=== PATIENT | female | born 2000 | race Caucasian/White ===

== ENCOUNTER 2020-02-05 19:35 | Emergency (ER) | payer SELFPAY ==
--- NOTE | 2020-02-05 20:28 | EDM.PDOC ---
ED HPI GENERAL MEDICAL PROBLEM - General Chief Complaint: MANAGER PULMONARY Problem Stated Complaint: COMPLICATIONS Time Seen by Provider: 02/05/20 19:51 Source of Information: Reports: Patient History Limitations: Reports: No Limitations - History of Present Illness INITIAL COMMENTS - FREE TEXT/NARRATIVE: 19-year-old female GA 12 weeks by LMP of 11/17/2019, presents with pelvic cramps and vaginal spotting at 5 PM today. She denies fever, chills, myalgia, dysuria. She admits to a sore throat, generalized malaise, nausea, vomiting, dry cough, headaches. ROS: A 10-point review of systems, other than pertinent positives and negatives as stated per HPI, is otherwise negative Past medical history: No additional pertinent history Past Surgical history: No additional pertinent history Social history: No additional pertinent history Family history: No additional pertinent history PHYSICAL EXAM General: AOx4, GCS = 15, No distress HEENT: dry mucous membrane Neck: supple, no meningismus, no Kernig or Brudzinski Cardiac: S1S2 RRR Respiratory: CTAB, no crackles or rales, no wheezing Abdomen: Soft, suprapubic tenderness, no rebound or guarding, nondistended, no pulsatile mass. Back: nontender Musculoskeletal: NVI distally, no deformity Neuro: No focal deficits, CN 2 - 12 WNL. 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: Musculoskeletal History: Reports: None Neurological History: Reports: None Psychiatric History: Reports: None Endocrine/Metabolic History: Reports: None Dermatologic History: Reports: None - Infectious Disease History Infectious Disease History: Reports: None Social & Family History - Tobacco Use Tobacco Use Status *Q: Never Tobacco User - Recreational Drug Use Recreational Drug Use: No ED ROS GENERAL - Review of Systems Review Of Systems: See Below (see dictation) ED EXAM, GENERAL - Physical Exam Exam: See Below (see dictation) Course - Vital Signs Last Recorded V/S: Last Vital Signs Temp 98.9 F 02/05/20 19:44 Pulse 85 02/05/20 23:23 Resp 14 02/05/20 23:23 BP 110/50 L 02/05/20 23:23 Pulse Ox 98 02/05/20 23:23 - Orders/Labs/Meds Orders: Active Orders 24 hr Category Date Time Status CORONAVIRUS COVID-19 PCR PHL Stat Lab 02/05/20 23:29 Ordered CULTURE URINE [RM] Stat Lab 02/05/20 21:50 Received Labs: Laboratory Tests 02/05/20 02/05/20 02/05/20 Range/Units 21:50 22:10 22:10 WBC 6.82 (4.0-11.0) K/uL RBC 4.36 (4.30-5.90) M/uL Hgb 13.7 (12.0-16.0) g/dL Hct 40.5 (36.0-46.0) % MCV 92.9 (80.0-98.0) fL MCH 31.4 (27.0-32.0) pg MCHC 33.8 (31.0-37.0) g/dL RDW Std Deviation 41.1 (28.0-62.0) fl RDW Coeff of Saroj 12 (11.0-15.0) % Plt Count 193 (150-400) K/uL MPV 10.60 (7.40-12.00) fL Neut % (Auto) 67.0 (48.0-80.0) % Lymph % (Auto) 17.3 (16.0-40.0) % [place] % (Auto) 14.7 (0.0-15.0) % Eos % (Auto) 0.7 (0.0-7.0) % Baso % (Auto) 0.3 (0.0-1.5) % Neut # (Auto) 4.6 (1.4-5.7) K/uL Lymph # (Auto) 1.2 (0.6-2.4) K/uL [place] # (Auto) 1.0 H (0.0-0.8) K/uL Eos # (Auto) 0.1 (0.0-0.7) K/uL Baso # (Auto) 0.0 (0.0-0.1) K/uL Nucleated RBC % 0.0 /100WBC Nucleated RBCs # 0 K/uL Sodium (136-145) mmol/L Potassium (3.5-5.1) mmol/L Chloride (98-107) mmol/L Carbon Dioxide (21.0-32.0) mmol/L BUN (7.0-18.0) mg/dL Creatinine (0.6-1.0) mg/dL Est Cr Clr Drug Dosing mL/min Estimated GFR (MDRD) ml/min Glucose (74-106) mg/dL Calcium (8.5-10.1) mg/dL Total Bilirubin (0.2-1.0) mg/dL AST (15-37) IU/L ALT (14-63) IU/L Alkaline Phosphatase (46-116) U/L Total Protein (6.4-8.2) g/dL Albumin (3.4-5.0) g/dL Globulin (2.6-4.0) g/dL Albumin/Globulin Ratio (0.9-1.6) HCG, Quant 452877.0 mIU/mL Urine Color YELLOW Urine Appearance SLT CLOUDY Urine pH 5.5 (5.0-8.0) Ur Specific [place] >= 1.030 (1.001-1.035) Urine Protein NEGATIVE (NEGATIVE) mg/dL Urine Glucose (UA) NEGATIVE (NEGATIVE) mg/dL Urine Ketones NEGATIVE (NEGATIVE) mg/dL Urine Occult Blood NEGATIVE (NEGATIVE) Urine Nitrite NEGATIVE (NEGATIVE) Urine Bilirubin NEGATIVE (NEGATIVE) Urine Urobilinogen 0.2 (<2.0) EU/dL Ur Leukocyte Esterase TRACE H (NEGATIVE) Urine RBC 0-2 (0-2/HPF) Urine WBC 3-6 (0-5/HPF) Ur Epithelial Cells MODERATE (NONE-FEW) Urine Bacteria FEW (NEGATIVE) Urine Mucus MODERATE (NONE-MOD) Blood Type 02/05/20 02/05/20 Range/Units 22:10 22:10 WBC (4.0-11.0) K/uL RBC (4.30-5.90) M/uL Hgb (12.0-16.0) g/dL Hct (36.0-46.0) % MCV (80.0-98.0) fL MCH (27.0-32.0) pg MCHC (31.0-37.0) g/dL RDW Std Deviation (28.0-62.0) fl RDW Coeff of Saroj (11.0-15.0) % Plt Count (150-400) K/uL MPV (7.40-12.00) fL Neut % (Auto) (48.0-80.0) % Lymph % (Auto) (16.0-40.0) % [place] % (Auto) (0.0-15.0) % Eos % (Auto) (0.0-7.0) % Baso % (Auto) (0.0-1.5) % Neut # (Auto) (1.4-5.7) K/uL Lymph # (Auto) (0.6-2.4) K/uL [place] # (Auto) (0.0-0.8) K/uL Eos # (Auto) (0.0-0.7) K/uL Baso # (Auto) (0.0-0.1) K/uL Nucleated RBC % /100WBC Nucleated RBCs # K/uL Sodium 138 (136-145) mmol/L Potassium 3.8 (3.5-5.1) mmol/L Chloride 104 (98-107) mmol/L Carbon Dioxide 26.0 (21.0-32.0) mmol/L BUN 6 L (7.0-18.0) mg/dL Creatinine 0.6 (0.6-1.0) mg/dL Est Cr Clr Drug Dosing 130.23 mL/min Estimated GFR (MDRD) > 60.0 ml/min Glucose 97 (74-106) mg/dL Calcium 8.9 (8.5-10.1) mg/dL Total Bilirubin 0.2 (0.2-1.0) mg/dL AST 12 L (15-37) IU/L ALT 20 (14-63) IU/L Alkaline Phosphatase 56 (46-116) U/L Total Protein 6.7 (6.4-8.2) g/dL Albumin 3.2 L (3.4-5.0) g/dL Globulin 3.5 (2.6-4.0) g/dL Albumin/Globulin Ratio 0.9 (0.9-1.6) HCG, Quant mIU/mL Urine Color Urine Appearance Urine pH (5.0-8.0) Ur Specific [place] (1.001-1.035) Urine Protein (NEGATIVE) mg/dL Urine Glucose (UA) (NEGATIVE) mg/dL Urine Ketones (NEGATIVE) mg/dL Urine Occult Blood (NEGATIVE) Urine Nitrite (NEGATIVE) Urine Bilirubin (NEGATIVE) Urine Urobilinogen (<2.0) EU/dL Ur Leukocyte Esterase (NEGATIVE) Urine RBC (0-2/HPF) Urine WBC (0-5/HPF) Ur Epithelial Cells (NONE-FEW) Urine Bacteria (NEGATIVE) Urine Mucus (NONE-MOD) Blood Type O POSITIVE - Re-Assessments/Exams Free Text/Narrative Re-Assessment/Exam: 02/05/20 23:25 She is currently stable for discharge. I performed a repeat exam and did not appreciate new abnormal findings. Patient exhibits normal vital signs and has a normal gait on road test. I advised the patient to practice pelvic rest and bed rest, return to the ER for reevaluation if symptoms worsened, including fever, worsening pain, or any other worrisome symptoms. I instructed the patient to follow up with their PCP within 2-3 days. MEDICAL DECISION MAKING: I reviewed the patients past medical records, lab and radiographic findings. I discussed the case with the patient. My differential diagnosis included: Threatened miscarriage, UTI. Patient is O+, no RhoGam required. Ultrasound demonstrated normal heart tones, urine demonstrated trace UTI. Treated prescribed with antibiotics. Departure - Departure Time of Disposition: 23:30 Disposition: Home, Self-Care 01 Condition: Good Clinical Impression: Threatened , Urinary tract infection - Discharge Information *PRESCRIPTION DRUG MONITORING PROGRAM REVIEWED*: Not Applicable *COPY OF PRESCRIPTION DRUG MONITORING REPORT IN PATIENT ALEXEY: Not Applicable Prescriptions: cephALEXin [Keflex] 500 mg PO Q8H #30 cap Instructions: Threatened Miscarriage, Urinary Tract Infection, Adult, and Urinary Tract Infection, Antibiotic Medicine, Adult Referrals: PCP,None [Primary Care Provider] - Forms: ED Department Discharge Additional Instructions: The need for follow-up, as well as the timing and circumstances, are variable depending upon the specifics of your emergency department visit. If you don't have a primary care physician on staff, we will provide you with a referral. We always advise you to contact your personal physician following an emergency department visit to inform them of the circumstance of the visit and for follow-up with them and/or the need for any referrals to a consulting specialist. The emergency department will also refer you to a specialist when appropriate. This referral assures that you have the opportunity for follow-up care with a specialist. All of these measure are taken in an effort to provide you with optimal care, which includes your follow-up. Under all circumstances we always encourage you to contact your private physician who remains a resource for coordinating your care. When calling for follow-up care, please make the office aware that this follow-up is from your recent emergency room visit. If for any reason you are refused follow-up, please contact the [facility] Emergency Department at and asked to speak to the emergency department charge nurse. If you do not have a primary care doctor, please follow up with the clinics below within 3-5 days. MANAGER PULMONARY clinics [facility] [address] [place] [id number] Sepsis Event Note (ED) - Evaluation Sepsis Screening Result: No Definite Risk - Focused Exam Vital Signs: Vital Signs Temp Pulse Resp BP Pulse Ox 02/05/20 23:23 85 14 110/50 L 98 02/05/20 19:44 98.9 F 102 H 16 122/84 98 - My Orders Last 24 Hours: My Active Orders 02/05/20 21:50 CULTURE URINE [RM] Stat 02/05/20 23:29 CORONAVIRUS COVID-19 PCR PHL Stat - Assessment/Plan Last 24 Hours: My Active Orders 02/05/20 21:50 CULTURE URINE [RM] Stat 02/05/20 23:29 CORONAVIRUS COVID-19 PCR PHL Stat
[2020-02-05 22:43] LABS: BLOOD UREA NITROGEN,BUN 6 mg/dL (7.0-18.0); CHLORIDE,CL 104 mmol/L (98-107); GLUCOSE RANDOM 97 mg/dL (74-106); POTASSIUM,K 3.8 mmol/L (3.5-5.1); SODIUM,NA 138 mmol/L (136-145)
--- NOTE | 2020-02-05 23:18 | US ---
INDICATION: with vaginal bleeding. TECHNIQUE: Ultrasound OB pelvis transabdominal. Real-time waters-scale imaging of the pelvis was performed. COMPARISON: None FINDINGS: Sonographic imaging demonstrates a single living intrauterine gestation. The embryo demonstrates a regular cardiac rate measuring 167 beats per minute. The embryo`s crown rump length measurement of 4.89 cm corresponds to a gestational age of 11 weeks 5 days with a sonographic due date of August 22, 2019. There is a normal appearing yolk sac. There are no gross abnormalities noted within the embryo at this early state of development. The placenta is posterior. There is no sign of perigestational hemorrhage. The ovaries are of normal size. There are no suspicious fluid collections noted in the cul-de-sac. IMPRESSION: Single viable intrauterine with an estimated ultrasound age of 11 weeks 5 days. No sign of hemorrhage or other abnormality. Dictated by Anibal Banerjee MD @ Feb 06 2020 8:09PM Signed by Dr. Anibal Banerjee @ Feb 06 2020 8:11PM
== END 2020-02-05 23:57 | disposition home or self-care (01) ==
LOC: MW.ED 19:35
DX: O20.0 Threatened abortion (principal); O23.42 Unspecified infection of urinary tract in pregnancy, second trimester; O98.511 Other viral diseases complicating pregnancy, first trimester; U07.1 COVID-19; Z88.0 Allergy status to penicillin; Z3A.12 12 weeks gestation of pregnancy
CPT/HCPCS: 36415; 76801; 76801-26; 80053; 81001; 84702; 85025; 86900; 86901; 87086; 99283; 99284-25; U0002

== ENCOUNTER 2020-08-20 04:04 | Inpatient (IN) | payer MEDICAID ==
[2020-08-20] MEDS ORDERED: Lidocaine 1% 50 ML MDV INJECT PRN (04:27)
[2020-08-20] MEDS ORDERED: Carboprost Tromethamine 250 MCG/1 ML Amp IM PRN (04:27)
[2020-08-20] MEDS ORDERED: Nalbuphine 10 MG/1 ML Vial IVPUSH PRN (04:27)
[2020-08-20] MEDS ORDERED: Ondansetron 4 MG/2 ML SDV IVPUSH PRN (04:27)
[2020-08-20] MEDS ORDERED: Sodium Chloride 0.9% 10 ML SDV IV PRN (04:27)
[2020-08-20] MEDS ORDERED: Misoprostol 200 MCG Tab PO PRN (04:27)
[2020-08-20] MEDS ORDERED: Methylergonovine 0.2 MG/1 ML Amp IM PRN ×2 (04:27→10:15)
[2020-08-20] MEDS ORDERED: Sodium Chloride 0.9% 10 ML Syringe FLUSH PRN (04:27)
[2020-08-20] MEDS ORDERED: Sodium Chloride 0.9% 2.5 ML Syringe FLUSH PRN (04:27)
[2020-08-20] MEDS ORDERED: Tranexamic Acid 1,000 MG in Sodium Chloride 0.9% 100 ML IV PRN ×2 (04:27→10:15)
[2020-08-20] MEDS ORDERED: Water For Irrigation,Sterile 1,000 ML Container IRR PRN (04:27)
[2020-08-20] MEDS ORDERED: Oxytocin/0.9 % Sodium Chloride 30 UNIT/500 ML BAG IV SCH (04:30)
[2020-08-20] MEDS: Lactated Ringers 1,000 ML IV SCH ×3 (04:40→09:15)
[2020-08-20] MEDS: Butorphanol 1 MG/ML SDV IVPUSH PRN ×2 (05:13→07:31)
[2020-08-20] MEDS ORDERED: fentaNYL 100 MCG/2 ML SDV ONE (08:31)
[2020-08-20] MEDS ORDERED: Ropivacaine HCl/PF 200 ML ONE (08:31)
--- NOTE | 2020-08-20 09:21 | PCM.PREANE ---
Preanesthetic Assessment - Procedure Proposed Procedure: YIN - Anesthesia/Transfusion/Family Hx Anesthesia History: Prior Anesthesia Without Reaction Family History of Anesthesia Reaction: No Transfusion History: No Prior Transfusion(s) Intubation History: Unknown - Review of Systems General: No Symptoms Pulmonary: No Symptoms Cardiovascular: No Symptoms Gastrointestinal: No Symptoms Neurological: No Symptoms Other: Reports: Anxiety - Physical Assessment NPO Status Date: 08/20/20 NPO Status Time: 08:00 Height: 1.68 m Weight: 75.296 kg ASA Class: 2 Mental Status: Alert & Oriented x3 Airway Class: Mallampati = 1 Dentition: Reports: Normal Dentition Thyro-Mental Finger Breadths: 3 Mouth Opening Finger Breadths: 3 ROM/Head Extension: Full Lungs: Clear to Auscultation Cardiovascular: Regular Rate - Lab Values: Laboratory Last Values WBC 11.95 K/uL (4.0-11.0) H 08/20/20 04:30 RBC 4.32 M/uL (4.30-5.90) 08/20/20 04:30 Hgb 13.5 g/dL (12.0-16.0) 08/20/20 04:30 Hct 40.2 % (36.0-46.0) 08/20/20 04:30 MCV 93.1 fL (80.0-98.0) 08/20/20 04:30 MCH 31.3 pg (27.0-32.0) 08/20/20 04:30 MCHC 33.6 g/dL (31.0-37.0) 08/20/20 04:30 RDW Std Deviation 45.4 fl (28.0-62.0) 08/20/20 04:30 RDW Coeff of Saroj 13 % (11.0-15.0) 08/20/20 04:30 Plt Count 207 K/uL (150-400) 08/20/20 04:30 MPV 12.60 fL (7.40-12.00) H 08/20/20 04:30 Nucleated RBC % 0.0 /100WBC 08/20/20 04:30 Nucleated RBCs # 0 K/uL 08/20/20 04:30 SARS-CoV-2 RNA (MARTHA) NEGATIVE (NEGATIVE) 08/20/20 04:30 Blood Type O POSITIVE 08/20/20 04:30 Antibody Screen NEGATIVE 08/20/20 04:30 - Allergies Allergies/Adverse Reactions: Allergies Allergy/AdvReac Type Severity Reaction Status Date / Time Penicillins Allergy Swelling Verified 08/20/20 06:24 - Blood Blood Available: No Product(s) Available: None - Anesthesia Plan Pre-Op Medication Ordered: None - Acknowledgements Anesthesia Type Planned: Epidural Pt an Appropriate Candidate for the Planned Anesthesia: Yes Alternatives and Risks of Anesthesia Discussed w Pt/Guardian: Yes Pt/Guardian Understands and Agrees with Anesthesia Plan: Yes Additional Comments: 6 cm, active labor, point of hysterical with contractions, discussed, ? answered, permit signed. Will proceed. 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: Musculoskeletal History: Reports: None Neurological History: Reports: None Psychiatric History: Reports: None Endocrine/Metabolic History: Reports: None Hematologic History: Reports: None Dermatologic History: Reports: None - Infectious Disease History Infectious Disease History: Reports: None - Past Surgical History HEENT Surgical History: Reports: None GI Surgical History: Reports: None - HOME MEDS Home Medications: Home Meds Cyanocobalamin (Vitamin B-12) [Vitamin B-12] 0 mcg PO 02/05/20 [History] cephALEXin [Keflex] 500 mg PO Q8H #30 cap 02/05/20 [Rx] ondansetron HCL [Zofran] 4 mg PO ASDIRECTED 02/05/20 [History] - CURRENT (IN HOUSE) MEDS Current Meds: Current Medications Butorphanol Tartrate (Butorphanol 1 Mg/Ml Sdv) 1 mg IVPUSH Q1H PRN PRN Reason: Pain (severe 7-10) Last Admin: 08/20/20 07:31 Dose: 1 mg Documented by: Carboprost Tromethamine (Carboprost Tromethamine 250 Mcg/1 Ml Amp) 250 mcg IM ASDIRECTED PRN PRN Reason: Post Hemorrhage Oxytocin/Sodium Chloride (Oxytocin 30 Unit/500 Ml-Ns) 30 unit in 500 mls @ 999 mls/hr IV TITRATE ANNIE Tranexamic Acid 1,000 mg/ (Sodium Chloride) 110 mls @ 660 mls/hr IV ONETIME PRN PRN Reason: Bleeding Lactated Ringer's (Ringers, Lactated) 1,000 mls @ 150 mls/hr IV ASDIRECTED ANNIE Last Admin: 08/20/20 09:15 Dose: 150 mls/hr Documented by: Lidocaine HCl (Lidocaine 1% 50 Ml Mdv) 50 ml INJECT ONETIME PRN PRN Reason: Laceration repair Methylergonovine Maleate (Methylergonovine 0.2 Mg/1 Ml Amp) 0.2 mg IM ASDIRECTED PRN PRN Reason: Post Hemorrhage Misoprostol (Misoprostol 200 Mcg Tab) 200 mcg PO ONETIME PRN PRN Reason: Post Hemorrhage Nalbuphine HCl (Nalbuphine 10 Mg/1 Ml Vial) 10 mg IVPUSH Q1H PRN PRN Reason: Pain (severe 7-10) Ondansetron HCl (Ondansetron 4 Mg/2 Ml Sdv) 4 mg IVPUSH Q4H PRN PRN Reason: Nausea/Vomiting Sodium Chloride (Sodium Chloride 0.9% 10 Ml Syringe) 10 ml FLUSH ASDIRECTED PRN PRN Reason: Keep Vein Open Sodium Chloride (Sodium Chloride 0.9% 2.5 Ml Syringe) 2.5 ml FLUSH ASDIRECTED PRN PRN Reason: Keep Vein Open Sodium Chloride (Sodium Chloride 0.9% 10 Ml Sdv) 10 ml IV ASDIRECTED PRN PRN Reason: IV Use Sterile Water (Water For Irrigation,Sterile 1,000 Ml Container) 1,000 ml IRR ASDIRECTED PRN PRN Reason: delivery Discontinued Medications Fentanyl (Fentanyl 100 Mcg/2 Ml Sdv) Confirm Administered Dose 100 mcg .ROUTE .STK-MED ONE Stop: 08/20/20 08:32 Ropivacaine (Naropin 0.2%) Confirm Administered Dose 200 mls @ as directed .ROUTE .STK-MED ONE Stop: 08/20/20 08:32
--- NOTE | 2020-08-20 10:13 | PCM.DEL ---
L & D Note - General Info Date of Service: 08/20/20 Mother's Due Date: 08/23/20 - Delivery Note Labor: Spontaneous Delivery Outcome: Livebirth Infant Delivery Method: Spontaneous Vaginal Delivery-Single Delivery Mode: Spontaneous Presentation: Right Occiput Anterior (MAX) Nuchal Cord: None Prep: Other Anesthesia Type: Epidural Amniotic Fluid Description: Clear Episiotomy Type: None Laceration: Vaginal Suture type: Vicryl Suture size: 3-0 Placenta: Intact, Spontaneous Cord: 3 Vessels Estimated Blood Loss: 200 Resuscitation Needed: No : Bulb Syringe Score 1 min: 8 Score 5 min: 9 Delivery Comments (Free Text/Narrative):: Liveborn male weight 3710 grams. Placenta Herrera with 3 vessels. - General Info Date of Service: 08/20/20 - Patient Data Weight - Most Recent: 75.296 kg Lab Results Last 24 Hours: Laboratory Results - last 24 hr 08/20/20 08/20/20 08/20/20 Range/Units 04:30 04:30 04:30 WBC 11.95 H (4.0-11.0) K/uL RBC 4.32 (4.30-5.90) M/uL Hgb 13.5 (12.0-16.0) g/dL Hct 40.2 (36.0-46.0) % MCV 93.1 (80.0-98.0) fL MCH 31.3 (27.0-32.0) pg MCHC 33.6 (31.0-37.0) g/dL RDW Std Deviation 45.4 (28.0-62.0) fl RDW Coeff of Saroj 13 (11.0-15.0) % Plt Count 207 (150-400) K/uL MPV 12.60 H (7.40-12.00) fL Nucleated RBC % 0.0 /100WBC Nucleated RBCs # 0 K/uL SARS-CoV-2 RNA (MARTHA) NEGATIVE (NEGATIVE) Blood Type O POSITIVE Antibody Screen NEGATIVE Med Orders - Current: Current Medications Butorphanol Tartrate (Butorphanol 1 Mg/Ml Sdv) 1 mg IVPUSH Q1H PRN PRN Reason: Pain (severe 7-10) Last Admin: 08/20/20 07:31 Dose: 1 mg Documented by: Carboprost Tromethamine (Carboprost Tromethamine 250 Mcg/1 Ml Amp) 250 mcg IM ASDIRECTED PRN PRN Reason: Post Hemorrhage Oxytocin/Sodium Chloride (Oxytocin 30 Unit/500 Ml-Ns) 30 unit in 500 mls @ 999 mls/hr IV TITRATE [facility] Tranexamic Acid 1,000 mg/ (Sodium Chloride) 110 mls @ 660 mls/hr IV ONETIME PRN PRN Reason: Bleeding Lactated Ringer's (Ringers, Lactated) 1,000 mls @ 150 mls/hr IV ASDIRECTED [facility] Last Admin: 08/20/20 09:15 Dose: 150 mls/hr Documented by: Lidocaine HCl (Lidocaine 1% 50 Ml Mdv) 50 ml INJECT ONETIME PRN PRN Reason: Laceration repair Methylergonovine Maleate (Methylergonovine 0.2 Mg/1 Ml Amp) 0.2 mg IM ASDIRECTED PRN PRN Reason: Post Hemorrhage Misoprostol (Misoprostol 200 Mcg Tab) 200 mcg PO ONETIME PRN PRN Reason: Post Hemorrhage Nalbuphine HCl (Nalbuphine 10 Mg/1 Ml Vial) 10 mg IVPUSH Q1H PRN PRN Reason: Pain (severe 7-10) Ondansetron HCl (Ondansetron 4 Mg/2 Ml Sdv) 4 mg IVPUSH Q4H PRN PRN Reason: Nausea/Vomiting Sodium Chloride (Sodium Chloride 0.9% 10 Ml Syringe) 10 ml FLUSH ASDIRECTED PRN PRN Reason: Keep Vein Open Sodium Chloride (Sodium Chloride 0.9% 2.5 Ml Syringe) 2.5 ml FLUSH ASDIRECTED PRN PRN Reason: Keep Vein Open Sodium Chloride (Sodium Chloride 0.9% 10 Ml Sdv) 10 ml IV ASDIRECTED PRN PRN Reason: IV Use Sterile Water (Water For Irrigation,Sterile 1,000 Ml Container) 1,000 ml IRR ASDIRECTED PRN PRN Reason: delivery Discontinued Medications Fentanyl (Fentanyl 100 Mcg/2 Ml Sdv) Confirm Administered Dose 100 mcg .ROUTE .STDatran Media-MED ONE Stop: 08/20/20 08:32 Ropivacaine (Naropin 0.2%) Confirm Administered Dose 200 mls @ as directed .ROUTE .WorldPassKeyMED ONE Stop: 08/20/20 08:32 - Problem List & Annotations (1) Vaginal delivery SNOMED Code(s): 610720543 Code(s): O80 - ENCOUNTER FOR FULL-TERM UNCOMPLICATED DELIVERY Status: Acute Current Visit: Yes - Problem List Review Problem List Initiated/Reviewed/Updated: Yes - My Orders Last 24 Hours: My Active Orders 08/20/20 04:27 Butorphanol [Stadol] 1 mg IVPUSH Q1H PRN Carboprost Tromethamine [Hemabate DS] 250 mcg IM ASDIRECTED PRN Lidocaine 1% [Xylocaine 1%] 50 ml INJECT ONETIME PRN Methylergonovine [Methergine] 0.2 mg IM ASDIRECTED PRN Nalbuphine [Nubain] 10 mg IVPUSH Q1H PRN Ondansetron [Zofran] 4 mg IVPUSH Q4H PRN Sodium Chloride 0.9% [Normal Saline] 10 ml IV ASDIRECTED PRN Sodium Chloride 0.9% [Saline Flush] 10 ml FLUSH ASDIRECTED PRN Sodium Chloride 0.9% [Saline Flush] 2.5 ml FLUSH ASDIRECTED PRN Tranexamic Acid [Cyklokapron] 1,000 mg Sodium Chloride 0.9% [Normal Saline] 100 ml IV ONETIME Water For Irrigation,Sterile [Sterile Water for Irrigation] 1,000 ml IRR ASDIRECTED PRN miSOPROStoL [Cytotec] 200 mcg PO ONETIME PRN 08/20/20 04:28 Patient Status [ADT] Routine Heart Tones [RC] CONTINUOUS Non Stress Test [RC] PER UNIT ROUTINE May Shower [RC] ASDIRECTED Notify Provider [RC] PRN Up ad Laura [RC] ASDIRECTED Vaginal Exam [RC] PRN Vital Signs [RC] PER UNIT ROUTINE Scalp Electrode [WOMSER] Per Unit Routine Peripheral IV Insertion Adult [OM.PC] Routine 08/20/20 04:30 RPR (SYPHILIS SERO) W/ RFLX [REF] Stat Lactated Ringers [Ringers, Lactated] 1,000 ml IV ASDIRECTED Oxytocin/0.9 % Sodium Chloride [Oxytocin 30 Unit/500 ML-NS] 30 unit in 500 ml IV TITRATE
[2020-08-20] MEDS ORDERED: Docusate Sodium 100 MG Cap PO PRN (10:15)
[2020-08-20] MEDS ORDERED: Lanolin 100% Cream 7 GM Tube TOP PRN (10:15)
[2020-08-20] MEDS ORDERED: Benzocaine/Menthol 20%-0.5% Spray 78 GM Cannister TOP PRN (10:15)
[2020-08-20] MEDS ORDERED: Bisacodyl 10 MG Supp RECTAL PRN (10:15)
[2020-08-20] MEDS ORDERED: Witch Hazel Medicated Pads 40/Jar TOP PRN (10:15)
[2020-08-20] MEDS ORDERED: Acetaminophen 500 MG Tab PO PRN (10:15)
[2020-08-20] MEDS ORDERED: Ibuprofen 400 MG Tab PO PRN (10:15)
--- NOTE | 2020-08-20 10:56 | PCM48HPAN ---
Post Anesthesia Note - EVALUATION WITHIN 48HRS OF ANESTHETIC Vital Signs in Normal Range: Yes Patient Participated in Evaluation: Yes Respiratory Function Stable: Yes Airway Patent: Yes Cardiovascular Function Stable: Yes Hydration Status Stable: Yes Pain Control Satisfactory: Yes Nausea and Vomiting Control Satisfactory: Yes Mental Status Recovered: Yes - COMMENTS/OBSERVATIONS Free Text/Narrative:: Did well. No problems post.
[2020-08-20] MEDS: Acetaminophen 500 MG Tab PO PRN (17:49)
[2020-08-20] MEDS: Ibuprofen 800 MG Tab PO PRN (22:54)
[2020-08-21] MEDS: Acetaminophen 500 MG Tab PO PRN (05:57)
[2020-08-21] MEDS: Ibuprofen 800 MG Tab PO PRN (09:54)
--- NOTE | 2020-08-21 10:06 | PCM.PNPP ---
- General Info Date of Service: 08/21/20 Subjective Update: 20 yo P1 s/p PPD 1 Bottle feeding , Normal lochia Functional Status: Reports: Pain Controlled, Tolerating Diet, Ambulating, Urinating - Review of Systems General: Reports: No Symptoms HEENT: Reports: No Symptoms Pulmonary: Reports: No Symptoms Cardiovascular: Reports: No Symptoms Gastrointestinal: Reports: No Symptoms Genitourinary: Reports: No Symptoms Musculoskeletal: Reports: No Symptoms Skin: Reports: No Symptoms Neurological: Reports: No Symptoms Psychiatric: Reports: No Symptoms - General Info Date of Service: 08/21/20 - Patient Data Vital Signs - Most Recent: Last Vital Signs Temp 36.1 C 08/21/20 08:00 Pulse 71 08/21/20 08:00 Resp 18 08/21/20 08:00 BP 103/57 L 08/21/20 08:00 Pulse Ox 96 08/21/20 08:00 Weight - Most Recent: 75.296 kg Lab Results - Last 24 Hours: Laboratory Results - last 24 hr 08/20/20 08/21/20 Range/Units 09:47 05:31 Hgb 12.4 (12.0-16.0) g/dL Hct 37.5 (36.0-46.0) % Cord ABG pH 7.340 (7.18-7.38) Cord ABG Base Excess -2.2 (-10--2) Cord VBG pH 7.330 (7.25-7.45) Cord VBG Base Excess -2.5 (-10--2) Med Orders - Current: Current Medications Acetaminophen (Acetaminophen 500 Mg Tab) 500 mg PO Q4H PRN PRN Reason: Pain (mild 1-3) Acetaminophen (Acetaminophen 500 Mg Tab) 1,000 mg PO Q4H PRN PRN Reason: Pain (mild 1-3) Last Admin: 08/21/20 05:57 Dose: 1,000 mg Documented by: Benzocaine/Menthol (Benzocaine/Menthol 20%-0.5% [place] 78 Gm Cannister) 78 gm TOP ASDIRECTED PRN PRN Reason: Perineal Comfort Measure Last Admin: 08/20/20 12:28 Dose: 1 can Documented by: Bisacodyl (Bisacodyl 10 Mg Supp) 10 mg RECTAL ONETIME PRN PRN Reason: Constipation Docusate Sodium (Docusate Sodium 100 Mg Cap) 100 mg PO Q12H PRN PRN Reason: Constipation Emollient Ointment (Lanolin 100% Cream 7 Gm Tube) 0 gm TOP ASDIRECTED PRN PRN Reason: Sore Nipples Tranexamic Acid 1,000 mg/ (Sodium Chloride) 110 mls @ 660 mls/hr IV ONETIME PRN PRN Reason: Bleeding Ibuprofen (Ibuprofen 400 Mg Tab) 400 mg PO Q4H PRN PRN Reason: Pain (mild 1-3) Ibuprofen (Ibuprofen 800 Mg Tab) 800 mg PO Q6H PRN PRN Reason: Pain (mild 1-3) Last Admin: 08/21/20 09:54 Dose: 800 mg Documented by: Methylergonovine Maleate (Methylergonovine 0.2 Mg/1 Ml Amp) 0.2 mg IM ONETIME PRN PRN Reason: Excessive Vaginal Bleeding [place] ([place] Medicated Pads 40/Jar) 1 pad TOP ASDIRECTED PRN PRN Reason: comfort care Last Admin: 08/20/20 12:27 Dose: 1 container Documented by: Discontinued Medications Butorphanol Tartrate (Butorphanol 1 Mg/Ml Sdv) 1 mg IVPUSH Q1H PRN PRN Reason: Pain (severe 7-10) Last Admin: 08/20/20 07:31 Dose: 1 mg Documented by: Carboprost Tromethamine (Carboprost Tromethamine 250 Mcg/1 Ml Amp) 250 mcg IM ASDIRECTED PRN PRN Reason: Post Hemorrhage Fentanyl (Fentanyl 100 Mcg/2 Ml Sdv) Confirm Administered Dose 100 mcg .ROUTE .[facility] ONE Stop: 08/20/20 08:32 Oxytocin/Sodium Chloride (Oxytocin 30 Unit/500 Ml-Ns) 30 unit in 500 mls @ 999 mls/hr IV TITRATE [facility] Last Admin: 08/20/20 09:55 Dose: 999 mls/hr Documented by: Tranexamic Acid 1,000 mg/ (Sodium Chloride) 110 mls @ 660 mls/hr IV ONETIME PRN PRN Reason: Bleeding Lactated Ringer's (Ringers, Lactated) 1,000 mls @ 150 mls/hr IV ASDIRECTED [facility] Last Admin: 08/20/20 09:15 Dose: 150 mls/hr Documented by: Ropivacaine (Naropin 0.2%) Confirm Administered Dose 200 mls @ as directed .ROUTE .[employer] ONE Stop: 08/20/20 08:32 Lidocaine HCl (Lidocaine 1% 50 Ml Mdv) 50 ml INJECT ONETIME PRN PRN Reason: Laceration repair Methylergonovine Maleate (Methylergonovine 0.2 Mg/1 Ml Amp) 0.2 mg IM ASDIREC CORY PRN PRN Reason: Post Hemorrhage Misoprostol (Misoprostol 200 Mcg Tab) 200 mcg PO ONETIME PRN PRN Reason: Post Hemorrhage Nalbuphine HCl (Nalbuphine 10 Mg/1 Ml Vial) 10 mg IVPUSH Q1H PRN PRN Reason: Pain (severe 7-10) Ondansetron HCl (Ondansetron 4 Mg/2 Ml Sdv) 4 mg IVPUSH Q4H PRN PRN Reason: Nausea/Vomiting Sodium Chloride (Sodium Chloride 0.9% 10 Ml Syringe) 10 ml FLUSH ASDIRECTED PRN PRN Reason: Keep Vein Open Sodium Chloride (Sodium Chloride 0.9% 2.5 Ml Syringe) 2.5 ml FLUSH ASDIRECTED PRN PRN Reason: Keep Vein Open Sodium Chloride (Sodium Chloride 0.9% 10 Ml Sdv) 10 ml IV ASDIRECTED PRN PRN Reason: IV Use Sterile Water (Water For Irrigation,Sterile 1,000 Ml Container) 1,000 ml IRR ASDIRECTED PRN PRN Reason: delivery - Interaction Support Person: - Recovery Exam Fundal Tone: Firm Fundal Level: 1 Fingerbreadths Below Umbilicus Fundal Placement: Midline Lochia Amount: Scant Lochia Color: Rubra/Red Perineum Description: Edematous, Other (see below) Other Perinuem Description: skid regan Episiotomy/Laceration: Approximated Bladder Status: Voiding Urinary Elimination: Voided - Exam General: Alert HEENT: Pupils Equal Neck: Supple Lungs: Clear to Auscultation Cardiovascular: Regular Rate, Regular Rhythm GI/Abdominal Exam: Normal Bowel Sounds Extremities: Normal Inspection Neurological: No New Focal Deficit Psy/Mental Status: Alert - Problem List & Annotations (1) Vaginal delivery SNOMED Code(s): 085253071 Code(s): O80 - ENCOUNTER FOR FULL-TERM UNCOMPLICATED DELIVERY Status: Acute Current Visit: Yes - Problem List Review Problem List Initiated/Reviewed/Updated: Yes - Assessment Assessment:: 20 yo P1 s/p PPD 1 Bottle feeding , Normal lochia - Plan Plan:: Routine Pain control as needed Discharge home today
--- NOTE | 2020-08-21 13:01 | OR ---
SURGEON: Brinda Ventura M.D. DATE OF PROCEDURE: 08/20/2020 PREOPERATIVE DIAGNOSIS: A 39-week intrauterine , active spontaneous labor. POSTOPERATIVE DIAGNOSIS: A 39-week intrauterine , active spontaneous labor. PROCEDURE: Term spontaneous vaginal delivery, repair of vaginal lacerations. PRIMARY SURGEON: Brinda Ventura M.D. ANESTHESIA: Epidural. ESTIMATED BLOOD LOSS: Less than 300 mL. FINDINGS: Live-born male, score of 8 and 9, weighing 3710 g. Placenta spontaneous, Herrera intact with 3 vessels. Small vaginal lacerations at 5 and 7 o'clock, repaired with [id number] sutures. COMPLICATIONS: None known. DISPOSITION: Mother and baby in LDR in good. BRIEF HISTORY: This is a 20-year-old female. She is G1, P0. She presents at 39+ weeks' gestation in active spontaneous labor. Category 1 heart tones. She received an epidural for pain control. She had category 1 heart tones throughout labor. She was group B strep negative. She progressed to complete. DESCRIPTION OF PROCEDURE: With the patient in dorsal lithotomy position, the patient pushed over 3 contractions to a 5+ station, at which time the head was delivered spontaneously and atraumatically over the perineum with support, with subsequent delivery of the 's shoulders and body without any difficulty. The was bulb suctioned by nose and mouth, and the cord was clamped x2 and cut after 1 minute. The was handed to the mother in the presence of nurse attending delivery. The infant was a live-born male, score of 8 and 9, weighing 3710 g. Cord blood was collected for cord ABGs as well as routine cord blood sampling. Pitocin was initiated after delivery of the to assist with delivery of the placenta which was delivered spontaneously, Herrera intact with 3 vessels. Upon inspection of the pelvis and perineum, there were no periurethral, vaginal sidewall, cervical, rectal, or perineal laceration. There were abrasions at 5 and 7 o'clock of the lower vagina where 3-0 Vicryl was utilized in a figure-of- eight suture for hemostasis. Final sponge, needle, and instrument counts were correct. There were no known complications. Mother and baby remained in LDR in good condition. DAINA / NAIN /[id number]
== END 2020-08-21 13:15 | disposition home or self-care (01) | DRG 807 ==
LOC: MW.OBCHECK 04:04 → MW.OB 04:05 → MW.OBCHECK 04:28 → MW.OB 04:28 → OBSVTOIN 09:47 → MW.OB 11:00
PROVIDERS: ADMIT Obstetrics & Gynecology; ATTEND Obstetrics & Gynecology
PROC: 10E0XZZ Delivery of Products of Conception, External Approach (ICD-10-PCS; principal; 2020-08-20)
PROC: 3E0R3BZ Introduction of Anesthetic Agent into Spinal Canal, Percutaneous Approach (ICD-10-PCS; 2020-08-20)
DX: O70.0 First degree perineal laceration during delivery (principal); Z37.0 Single live birth; Z3A.39 39 weeks gestation of pregnancy; Z20.822 Contact with and (suspected) exposure to COVID-19
CPT/HCPCS: 01967; 36415; 59025; 59409; 82803; 85014; 85018; 85027; 86592; 86850; 86900; 86901; A9270-GY; J0595; J2590; J3010; J7120; U0002

== ENCOUNTER 2020-08-23 15:00 | Emergency (ER) | payer MEDICAID ==
--- NOTE | 2020-08-23 16:21 | EDM.PDOC ---
ED HPI GENERAL MEDICAL PROBLEM - General Chief Complaint: Genitourinary Problem Stated Complaint: DISCHARGE/PAINFUL URINATION Time Seen by Provider: 08/23/20 15:30 Source of Information: Reports: Patient History Limitations: Reports: No Limitations - History of Present Illness INITIAL COMMENTS - FREE TEXT/NARRATIVE: HISTORY AND PHYSICAL: History of present illness: Patient is a 20-year-old female who presents emergency room today with concern of burning with urination and urinary frequency since this morning. Patient states that she did have a uncomplicated vaginal delivery 3 days ago and did have an epidural but is unsure if she had a urinary catheter. Patient states that started this morning, she started having some burning with urination urinary frequency and states that she has had a prior urinary tract infection with the same symptoms. Patient states that she is bleeding vaginally but states that she feels this is normal for just delivering a baby. Patient states that she is not breast-feeding and does not plan to. Patient does note that she is allergic to penicillins but states that she has had cephalosporins without any issues. Patient denies fever, chills, chest pain, shortness of breath, or cough. Denies headache, neck stiff ness, change in vision, syncope, or near syncope. Denies nausea, vomiting, abdominal pain, diarrhea, constipation, or dysuria. Has not noted any blood in urine or stool. Patient has been eating and drinking appropriately. Review of systems: As per history of present illness and below otherwise all systems reviewed and negative. Past medical history: As per history of present illness and as reviewed below otherwise noncontributory. Surgical history: As per history of present illness and as reviewed below otherwise noncontributory. Social history: See social history for further information Family history: As per history of present illness and as reviewed below otherwise noncontributory. Physical exam: General: Patient is alert, oriented, and in no acute distress. Patient sitting comfortably on exam table. Vitals stable and reviewed by me. HEENT: Atraumatic, normocephalic, pupils equal and reactive bilaterally, negative for conjunctival pallor or scleral icterus, mucous membranes moist, TMs normal bilaterally, throat clear, neck supple, nontender, trachea midline. No drooling or trismus noted. No meningeal signs. No hot potato voice noted. Lungs: Clear to auscultation, breath sounds equal bilaterally, chest nontender. Heart: S1S2, regular rate and rhythm without overt murmur Abdomen: Soft, nondistended, nontender. Negative for masses or hepatosplenomegaly. Negative for costovertebral tenderness. Pelvis: Stable nontender. Genitourinary: Deferred. Rectal: Deferred. Skin: Intact, warm, dry. No lesions or rashes noted. Extremities: Atraumatic, negative for cords or calf pain. Neurovascular unremarkable. Neuro: Awake, alert, oriented. Cranial nerves II through XII unremarkable. Cerebellum unremarkable. Motor and sensory unremarkable throughout. Exam nonfocal. Notes: Signs and symptoms are prompt return to the ED thoroughly discussed with patient. Discussed importance for follow-up with her SPOT CLEANER/primary care provider. Voices understanding and is agreeable to plan of care. Denies any further questions or concerns at this time. Diagnostics: Urinalysis with culture Therapeutics: None Prescription: Keflex-patient does have an allergy to penicillins but states that she has had keflex in the past without issues. Impression: Urinary tract infection Plan: 1. Take medication as prescribed. You can also alternate ibuprofen and Tylenol as directed for pain and discomfort. 2. Follow-up with a primary care provider/women's health care provider as discussed. Return to the ED as needed and as discussed. Definitive disposition and diagnosis as appropriate pending reevaluation and review of above. Bladder Pain Score (Numeric/FACES): 7 - Related Data Allergies Allergy/AdvReac Type Severity Reaction Status Date / Time Penicillins Allergy Swelling Verified 08/20/20 06:24 Home Meds: Home Meds cephALEXin [Keflex] 500 mg PO Q8H 7 Days #21 cap 08/23/20 [Rx] Past Medical History - Past Health History Medical/Surgical History: Denies Medical/Surgical History HEENT History: Reports: None Cardiovascular History: Reports: None Respiratory History: Reports: None Gastrointestinal History: Reports: None SPOT CLEANER History: Reports: Musculoskeletal History: Reports: None Neurological History: Reports: None Psychiatric History: Reports: None Endocrine/Metabolic History: Reports: None Hematologic History: Reports: None Dermatologic History: Reports: None - Infectious Disease History Infectious Disease History: Reports: None - Past Surgical History HEENT Surgical History: Reports: None GI Surgical History: Reports: None Social & Family History - Family History Cardiac: Reports: Hypertension Respiratory: Reports: COPD OBGYN: Reports: Psychiatric: Reports: None Endocrine/Metabolic: Reports: Diabetes, type II, Multinodular Thyroid - Tobacco Use Tobacco Use Status *Q: Never Tobacco User - Caffeine Use Caffeine Use: Reports: None - Recreational Drug Use Recreational Drug Use: No ED ROS GENERAL - Review of Systems Review Of Systems: Comprehensive ROS is negative, except as noted in HPI. ED EXAM, GENERAL - Physical Exam Exam: See Below (See dictation) Course - Vital Signs Last Recorded V/S: Last Vital Signs Temp 97.2 F 08/23/20 15:51 Pulse 70 08/23/20 15:51 Resp 16 08/23/20 15:51 BP 125/70 08/23/20 15:51 Pulse Ox 96 08/23/20 15:51 - Orders/Labs/Meds Orders: Active Orders 24 hr Category Date Time Status CULTURE URINE [MREF] Stat Lab 08/23/20 15:53 Received Labs: Laboratory Tests 08/23/20 08/23/20 Range/Units 15:53 15:53 Urine Color YELLOW Urine Appearance HAZY Urine pH 5.0 (5.0-8.0) Ur Specific [place] >= 1.030 (1.001-1.035) Urine Protein NEGATIVE (NEGATIVE) mg/dL Urine Glucose (UA) NEGATIVE (NEGATIVE) mg/dL Urine Ketones NEGATIVE (NEGATIVE) mg/dL Urine Occult Blood SMALL H (NEGATIVE) Urine Nitrite NEGATIVE (NEGATIVE) Urine Bilirubin NEGATIVE (NEGATIVE) Urine Urobilinogen 0.2 (<2.0) EU/dL Ur Leukocyte Esterase SMALL H (NEGATIVE) Urine RBC 0-2 (0-2/HPF) Urine WBC 5-10 (0-5/HPF) Ur Epithelial Cells RARE (NONE-FEW) Urine Bacteria FEW (NEGATIVE) Urine HCG, Qual POSITIVE (NEGATIVE) Departure - Departure Time of Disposition: 16:19 Disposition: Home, Self-Care 01 Clinical Impression: Urinary tract infection Qualifiers: Urinary tract infection type: acute cystitis Hematuria presence: without hematuria Qualified Code(s): N30.00 - Acute cystitis without hematuria - Discharge Information Prescriptions: cephALEXin [Keflex] 500 mg PO Q8H 7 Days #21 cap Instructions: Urinary Tract Infection, Adult Referrals: Adam Martinez MD [Primary Care Provider] - Forms: ED Department Discharge Additional Instructions: The following information is given to patients seen in the emergency department who are being discharged to home. This information is to outline your options for follow-up care. We provide all patients seen in our emergency department with a follow-up referral. The need for follow-up, as well as the timing and circumstances, are variable depending upon the specifics of your emergency department visit. If you don't have a primary care physician on staff, we will provide you with a referral. We always advise you to contact your personal physician following an emergency department visit to inform them of the circumstance of the visit and for follow-up with them and/or the need for any referrals to a consulting sp ecialist. The emergency department will also refer you to a specialist when appropriate. This referral assures that you have the opportunity for follow-up care with a specialist. All of these measure are taken in an effort to provide you with optimal care, which includes your follow-up. Under all circumstances we always encourage you to contact your private physician who remains a resource for coordinating your care. When calling for follow-up care, please make the office aware that this follow-up is from your recent emergency room visit. If for any reason you are refused follow-up, please contact the [facility] Emergency Department at and asked to speak to the emergency department charge nurse. [facility] [address] [place] [id number] [address] [facility] [address] [place] [address] 1. Take medication as prescribed. You can also alternate ibuprofen and Tylenol as directed for pain and discomfort. 2. Follow-up with a primary care provider/women's health care provider as discussed. Return to the ED as needed and as discussed. Sepsis Event Note (ED) - Evaluation Sepsis Screening Result: No Definite Risk - Focused Exam Vital Signs: Vital Signs Temp Pulse Resp BP Pulse Ox 08/23/20 15:51 97.2 F 70 16 125/70 96 - My Orders Last 24 Hours: My Active Orders 08/23/20 15:53 CULTURE URINE [MREF] Stat - Assessment/Plan Last 24 Hours: My Active Orders 08/23/20 15:53 CULTURE URINE [MREF] Stat
== END 2020-08-23 16:27 | disposition home or self-care (01) ==
LOC: MW.ED 15:00
DX: O86.22 Infection of bladder following delivery (principal); Z88.0 Allergy status to penicillin
CPT/HCPCS: 81001; 81025; 87086; 99283

== ENCOUNTER 2020-11-14 16:54 | Emergency (ER) | payer MEDICAID ==
--- NOTE | 2020-11-14 19:32 | EDM.PDOC ---
ED HPI GENERAL MEDICAL PROBLEM - General Chief Complaint: ENT Problem Stated Complaint: COUGH, SORE THROAT, TROUBLE SWALLOWING Time Seen by Provider: 11/14/20 19:15 Source of Information: Reports: Patient History Limitations: Reports: No Limitations - History of Present Illness INITIAL COMMENTS - FREE TEXT/NARRATIVE: HISTORY AND PHYSICAL: History of present illness: Patient is a 20-year-old female who presents to the emergency room with complaints of sore throat, ear pain, dry nonproductive cough and dyspnea over the past several days. She states she and her son both have had respiratory symptoms over the past 2 to 3 days and are concerned she may have COVID-19. Patient denies any fever, chills, headache, change in vision, syncope or near syncope. Denies any chest pain, back pain, shortness of breath, abdominal pain, nausea, vomiting, diarrhea, constipation or dysuria. Has not noted any blood in urine or stool. No concern for . Patient has been eating and drinking appropriately. Review of systems: As per history of present illness and below otherwise all systems reviewed and negative. Past medical history: As per history of present illness and as reviewed below otherwise noncontributory. Surgical history: As per history of present illness and as reviewed below otherwise noncontributory. Social history: See social history for further information Family history: As per history of present illness and as reviewed below otherwise noncontributory. Physical exam: General: Well developed and well nourished 20-year-old female. Alert and or ientated x 3. Nontoxic in appearance and in no acute distress. Vital signs are stable and have been reviewed by me. Nursing notes were reviewed. HEENT: Atraumatic, normocephalic, pupils equal and reactive bilaterally, negative for conjunctival pallor or scleral icterus, mucous membranes moist, TMs normal bilaterally, throat erythematous with cobblestoning. No fullness or pillar shifting. Neck supple, nontender, trachea midline. No drooling or trismus noted. No meningeal signs. No hot potato voice noted. Lungs: Clear to auscultation bilaterally. No wheezes, rales, or rhonchi. Chest nontender. Normal work of breathing, no accessory muscles used. Heart: S1S2, regular rate and rhythm without overt murmur, gallops, or rubs. No JVD. No peripheral edema Abdomen: Soft, nondistended, nontender. Skin: Intact, warm, dry. No lesions or rashes noted. Hematologic: No petechiae or purpra. Mucosa appropriate color and normal nail bed color and refill. Extremities: Atraumatic, moves all extremities per self without difficulty or deficits, negative for cords or calf pain. Neurovascular unremarkable. Neuro: Awake, alert, oriented. Cranial nerves II through XII unremarkable. Cerebellum unremarkable. Motor and sensory unremarkable throughout. Exam nonfocal. Psychiatric: Mood and affect are appropriate. Normal thought process. Answering questions appropriately. Please note that the patient was seen and evaluated during the 2019 SARS-CoV-2 novel coronavirus pandemic period. Community viral transmission is ongoing at time of this encounter and the emergency department is operating under pandemic response procedures. Medical Decision Making: Patient is a 20-year-old female who presents to the emergency room with upper respiratory complaints. Patient is current concerned she may have COVID-19 and/or strep throat. She and her infant son have checked in for evaluation. Patient's physical exam is unremarkable. Her vital signs are stable. Due to symptoms, will test for COVID/influenza/strep and perform a chest x-ray. Chest x-ray shows no acute findings. Labs are within normal limits. Vital signs remain stable. I have talked with the patient about today's findings, in addition to providing specific details for plan of care. Reassessment at the time of disposition demonstrates that the patient is in no acute distress. The patient is stable for discharge, counseling was provided and we discussed in great detail signs and symptoms that would prompt them to return to the Emergency Department. Medication, follow up and supportive care measures were reviewed and discussed. Voices understanding and is agreeable to plan of care. Denies any further questions or concerns at this time. Diagnostics: COVID-19, influenza, chest x-ray, strep Therapeutics: None Prescription: None Impression: Viral URI Plan: 1. You were evaluated today on an emergent basis. Your COVID-19, influenza and RSV are negative. Chest x-ray is normal. Use honey and warm water for throat pain. Drink plenty of fluids. 2. You can alternate Tylenol and/or ibuprofen as needed for pain or fever management. 3. We always encourage you to follow up with your water sander and/or recommended specialist in the next few days for re-evaluation and further care/management. 4. If your symptoms should worsen, new symptoms develop or any of the signs and symptoms we discussed should arise please return to the emergency room or call 911 (if needed). Definitive disposition and diagnosis as appropriate pending reevaluation and review of above. 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: Musculoskeletal History: Reports: None Neurological History: Reports: None Psychiatric History: Reports: None Endocrine/Metabolic History: Reports: None Hematologic History: Reports: None Dermatologic History: Reports: None - Infectious Disease History Infectious Disease History: Reports: None - Past Surgical History HEENT Surgical History: Reports: None GI Surgical History: Reports: None Social & Family History - Family History Cardiac: Reports: Hypertension Respiratory: Reports: COPD OBGYN: Reports: Psychiatric: Reports: None Endocrine/Metabolic: Reports: Diabetes, type II, Multinodular Thyroid - Caffeine Use Caffeine Use: Reports: None ED ROS GENERAL - Review of Systems Review Of Systems: Comprehensive ROS is negative, except as noted in HPI. ED EXAM, GENERAL - Physical Exam Exam: See Below (See dictation) Course - Vital Signs Last Recorded V/S: Last Vital Signs Temp 97.8 F 11/14/20 19:50 Pulse 75 11/14/20 19:50 Resp 14 11/14/20 19:50 BP 124/72 11/14/20 19:50 Pulse Ox 99 11/14/20 19:50 - Orders/Labs/Meds Orders: Active Orders 24 hr Category Date Time Status Isolation [COMM] Routine Oth 11/14/20 17:42 Active Labs: Laboratory Tests 11/14/20 11/14/20 Range/Units 19:45 19:45 Influenza Type A RNA NEGATIVE (NEGATIVE) Influenza Type B RNA NEGATIVE (NEGATIVE) SARS-CoV-2 RNA (MARTHA) NEGATIVE (NEGATIVE) Group A Strep (PCR) NOT DETECTED (NOT DETECT) Departure - Departure Time of Disposition: 21:18 Disposition: Home, Self-Care 01 Clinical Impression: Viral upper respiratory illness - Discharge Information Instructions: Viral Respiratory Infection, [id number] Referrals: Adam Martinez MD [Primary Care Provider] - Forms: ED Department Discharge Additional Instructions: The following information is given to patients seen in the emergency department who are being discharged to home. This information is to outline your options for follow-up care. We provide all patients seen in our emergency department with a follow-up referral. The need for follow-up, as well as the timing and circumstances, are variable depending upon the specifics of your emergency department visit. If you don't have a primary care physician on staff, we will provide you with a referral. We always advise you to contact your personal physician following an emergency department visit to inform them of the circumstance of the visit and for follow-up with them and/or the need for any referrals to a consulting specialist. The emergency department will also refer you to a specialist when appropriate. This referral assures that you have the opportunity for follow-up care with a specialist. All of these measure are taken in an effort to provide you with optimal care, which includes your follow-up. Under all circumstances we always encourage you to contact your private physician who remains a resource for coordinating your care. When calling for follow-up care, please make the office aware that this follow-up is from your recent emergency room visit. If for any reason you are refused follow-up, please contact the [facility] Emergency Department at and asked to speak to the emergency department charge nurse. [facility] [address] [place] [id number] [address] Thank you for choosing the [facility] emergency department in [place] for your medical needs today. It was a pleasure caring for you. Today you were seen in the emergency department for sore throat and cough. 1. You were evaluated today on an emergent basis. Your COVID-19, influenza and RSV are negative. 2. You can alternate Tylenol and/or ibuprofen as needed for pain or fever management. 3. We always encourage you to follow up with your water sander and/or recommended specialist in the next few days for re-evaluation and further care/management. 4. If your symptoms should worsen, new symptoms develop or any of the signs and symptoms we discussed should arise please return to the emergency room or call 911 (if needed). Sepsis Event Note (ED) - Focused Exam Vital Signs: Vital Signs Temp Pulse Resp BP Pulse Ox 11/14/20 19:50 97.8 F 75 14 124/72 99 - My Orders Last 24 Hours: My Active Orders 11/14/20 17:42 Isolation [COMM] Routine - Assessment/Plan Last 24 Hours: My Active Orders 11/14/20 17:42 Isolation [COMM] Routine
--- NOTE | 2020-11-14 20:19 | CR ---
Indication: Chest pain, shortness of breath Technique: Chest 1 view Comparison: None Findings/Impression: Cardiovascular and mediastinum: Heart size and vasculature are normal in caliber and appearance. Mediastinum is within normal limits. Lungs and pleural space: Lungs are clear. No sign of infiltrate or mass. No sign of pleural effusion. No pneumothorax. Bones and soft tissues: No significant findings. Dictated by Dayana Trinidad MD @ 11/14/2020 8:17:[address] Dayana Trinidad @ Nov 14 2020 8:17PM
[2020-11-14 20:44] LABS: CORONAVIRUS COVID-19 NAA NEGATIVE (NEGATIVE); INFLUENZA A NAA NEGATIVE (NEGATIVE); INFLUENZA B NAA NEGATIVE (NEGATIVE)
== END 2020-11-14 21:37 | disposition home or self-care (01) ==
LOC: MW.ED 16:54
DX: J06.9 Acute upper respiratory infection, unspecified (principal); Z88.0 Allergy status to penicillin; Z20.822 Contact with and (suspected) exposure to COVID-19
CPT/HCPCS: 0240U; 71045; 87651; 99283

== ENCOUNTER 2021-10-29 18:16 | Emergency (ER) | payer MEDICAID ==
[2021-10-29 21:40] LABS: CARBON DIOXIDE,CO2 23.8 mmol/L (21.0-32.0)
== END 2021-10-29 23:00 | disposition home or self-care (01) ==
LOC: MW.ED 18:16
DX: O20.0 Threatened abortion (principal); R10.2 Pelvic and perineal pain; Z3A.01 Less than 8 weeks gestation of pregnancy; Z88.0 Allergy status to penicillin
CPT/HCPCS: 36415; 76817; 76817-26; 80053; 81001; 81003; 84702; 84703; 85025; 86850; 86900; 86901; 99284

== ENCOUNTER 2021-12-10 12:07 | Emergency (ER) | payer MEDICAID ==
[2021-12-10] MEDS ORDERED: Sodium Chloride 0.9% 1,000 ML IV ONE ×2 (12:15→13:29)
[2021-12-10] MEDS ORDERED: Sodium Chloride 0.9% 2.5 ML Syringe FLUSH PRN (12:15)
[2021-12-10] MEDS ORDERED: Sodium Chloride 0.9% 10 ML Syringe FLUSH PRN (12:15)
[2021-12-10 13:17] LABS: CARBON DIOXIDE,CO2 24.2 mmol/L (21.0-32.0); POTASSIUM,K 3.1 mmol/L (3.5-5.1)
== END 2021-12-10 15:09 | disposition home or self-care (01) ==
LOC: MW.ED 12:07
DX: O21.1 Hyperemesis gravidarum with metabolic disturbance (principal); R55 Syncope and collapse; Z3A.10 10 weeks gestation of pregnancy; Z88.0 Allergy status to penicillin; Z86.16 Personal history of COVID-19
CPT/HCPCS: 36415; 80053; 81001; 83690; 83735; 84702; 85025; 93005; 96360; 96361; 99284; J3490; J7030; 93010; 99283

== ENCOUNTER 2022-07-01 10:42 | Inpatient (IN) | payer MEDICAID ==
[2022-07-01 11:59] LABS: CARBON DIOXIDE,CO2 22.9 mmol/L (21.0-32.0); POTASSIUM,K 3.6 mmol/L (3.5-5.1)
[2022-07-01] MEDS ORDERED: Water For Irrigation,Sterile 1,000 ML Container IRR PRN (13:55)
[2022-07-01] MEDS ORDERED: Tranexamic Acid 1,000 MG in Sodium Chloride 0.9% 100 ML IV PRN (13:55)
[2022-07-01] MEDS ORDERED: Methylergonovine 0.2 MG/1 ML Amp IM PRN (13:55)
[2022-07-01] MEDS ORDERED: Ondansetron 4 MG/2 ML SDV IVPUSH PRN (13:55)
[2022-07-01] MEDS ORDERED: Sodium Chloride 0.9% 20 ML SDV IV PRN (13:55)
[2022-07-01] MEDS ORDERED: Sodium Chloride 0.9% 10 ML Syringe FLUSH PRN (13:55)
[2022-07-01] MEDS ORDERED: Misoprostol 200 MCG Tab PO PRN (13:55)
[2022-07-01] MEDS ORDERED: Butorphanol 1 MG/ML SDV IVPUSH PRN (13:55)
[2022-07-01] MEDS ORDERED: Sodium Chloride 0.9% 2.5 ML Syringe FLUSH PRN (13:55)
[2022-07-01] MEDS ORDERED: Carboprost Tromethamine 250 MCG/1 ML Amp IM PRN (13:55)
[2022-07-01] MEDS ORDERED: Lidocaine 1% 50 ML MDV INJECT PRN (13:55)
[2022-07-01] MEDS ORDERED: Oxytocin/0.9 % Sodium Chloride 30 UNIT/500 ML BAG IV SCH ×2 (14:00→14:30)
[2022-07-01] MEDS ORDERED: Misoprostol 25 MCG (1/4 of 100 MCG) Tab VAG PRN ×2 (14:22)
[2022-07-01] MEDS ORDERED: Terbutaline 1 MG/ML SDV SUBCUT PRN (14:22)
[2022-07-01] MEDS: Lactated Ringers 1,000 ML IV SCH ×2 (15:42→22:31)
[2022-07-01] MEDS: Clindamycin Phosphate in D5W 900 MG in Premix Bag 1 BAG IV SCH ×4 (15:50→23:15)
[2022-07-01] MEDS ORDERED: Dexmedetomidine 200 MCG/2 ML SDV ONE (22:58)
[2022-07-01] MEDS ORDERED: Ropivacaine/PF 400 MG/200 ML PCA ONE (22:58)
[2022-07-01] MEDS ORDERED: fentaNYL 100 MCG/2 ML SDV ONE (23:12)
[2022-07-01] MEDS ORDERED: Bisacodyl 10 MG Supp RECTAL PRN (23:57)
[2022-07-01] MEDS ORDERED: oxyCODONE 5 MG Tab PO PRN (23:57)
[2022-07-01] MEDS ORDERED: Benzocaine/Menthol 20%-0.5% Spray 78 GM Cannister TOP PRN (23:57)
[2022-07-01] MEDS ORDERED: Acetaminophen 500 MG Tab PO PRN ×2 (23:57)
[2022-07-01] MEDS ORDERED: Witch Hazel Medicated Pads 40/Jar TOP PRN (23:57)
[2022-07-01] MEDS ORDERED: Docusate Sodium 100 MG Cap PO PRN (23:57)
[2022-07-01] MEDS ORDERED: Ibuprofen 800 MG Tab PO PRN (23:57)
[2022-07-01] MEDS ORDERED: Ibuprofen 400 MG Tab PO PRN (23:57)
[2022-07-01] MEDS ORDERED: Lanolin 100% Cream 7 GM Tube TOP PRN (23:57)
== END 2022-07-03 12:40 | disposition home or self-care (01) | DRG 807 ==
LOC: MW.OBCHECK 10:42 → MW.OB 10:43 → MW.OBCHECK 13:25 → MW.OB 13:55 → OBSVTOIN 23:40 → MW.OB 07-02 02:29
PROVIDERS: ADMIT Obstetrics & Gynecology; ATTEND Obstetrics & Gynecology
PROC: 10E0XZZ Delivery of Products of Conception, External Approach (ICD-10-PCS; principal; 2022-07-01)
PROC: 10907ZC Drainage of Amniotic Fluid, Therapeutic from Products of Conception, Via Natural or Artificial Opening (ICD-10-PCS; 2022-07-01)
PROC: 3E0R3BZ Introduction of Anesthetic Agent into Spinal Canal, Percutaneous Approach (ICD-10-PCS; 2022-07-01)
PROC: 00HU33Z Insertion of Infusion Device into Spinal Canal, Percutaneous Approach (ICD-10-PCS; 2022-07-01)
DX: O14.04 Mild to moderate pre-eclampsia, complicating childbirth (principal); Z37.0 Single live birth; O99.824 Streptococcus B carrier state complicating childbirth; Z3A.40 40 weeks gestation of pregnancy; Z87.891 Personal history of nicotine dependence
CPT/HCPCS: 36415; 59025; 59409; 80053; 81003; 82803; 84550; 85014; 85018; 85025; 86592; 86850; 86900; 86901; A9270-GY; J2590; J2795; J3010; J3490; J7120

== ENCOUNTER 2023-02-25 14:35 | Emergency (ER) | payer SELFPAY ==
[2023-02-25] MEDS ORDERED: Sodium Chloride 0.9% 1,000 ML IV STA ×2 (14:49→15:31)
[2023-02-25] MEDS ORDERED: Ondansetron 4 MG/2 ML SDV IVPUSH STA (15:01)
[2023-02-25 15:15] LABS: BASOPHILS ABSOLUTE AUTO 0.03 K/uL (0.00-0.20); BASOPHILS PERCENT AUTO 0.3 % (0.0-1.0); EOSINOPHILS ABSOLUTE AUTO 0.05 K/uL (0.00-0.45); EOSINOPHILS PERCENT AUTO 0.5 % (0.0-6.0); HEMATOCRIT 41.7 % (37.0-47.0); HEMOGLOBIN 14.3 g/dL (12.0-16.0); IMMATURE GRAN ABSOLUTE AUTO 0.02 K/uL (0.00-0.05); IMMATURE GRAN PERCENT AUTO 0.2 % (0.0-0.4); LYMPHOCYTES ABSOLUTE AUTO 2.93 K/uL (1.00-4.80); LYMPHOCYTES PERCENT AUTO 28.6 % (24.0-44.0); MEAN CORPUSCULAR HEMOGLOBIN 31.7 pg (28.0-32.0); MEAN CORPUSCULAR HGB CONC 34.3 g/dL (32.0-36.0); MEAN CORPUSCULAR VOLUME 92.5 fL (83.0-99.0); MEAN PLATELET VOLUME 10.3 fL (9.4-12.3); MONOCYTES PERCENT AUTO 5.9 % (0.0-8.0); NEUTROPHILS ABSOLUTE AUTO 6.61 K/uL (1.80-7.70); NEUTROPHILS PERCENT AUTO 64.5 % (41.0-71.0); PLATELET COUNT,PLT 230 K/uL (150-400); RED BLOOD CELL COUNT 4.51 M/uL (4.10-5.30); WHITE BLOOD CELL COUNT,WBC 10.24 K/uL (3.9-11.3)
[2023-02-25 15:20] LABS: APPEARANCE,URINE CLEAR; COLOR,URINE YELLOW; GLUCOSE,URINE NEGATIVE (NEGATIVE); KETONES,URINE TRACE mg/dL (NEGATIVE); LEUKOCYTE ESTERASE,URINE NEGATIVE (NEGATIVE); NITRITE,URINE NEGATIVE (NEGATIVE); OCCULT BLOOD,URINE NEGATIVE (NEGATIVE); PROTEIN,URINE NEGATIVE (NEGATIVE); UROBILINOGEN,URINE 0.2 EU/dL (<2.0)
[2023-02-25 15:26] LABS: BILIRUBIN,URINE SMALL (NEGATIVE)
[2023-02-25 15:33] LABS: INR 1.06 (0.86-1.11)
[2023-02-25 15:58] LABS: A/G RATIO 1.2 (0.9-1.6); BILIRUBIN TOTAL 0.5 mg/dL (0.2-1.0); CALCIUM 9.4 mg/dL (8.5-10.1); CARBON DIOXIDE,CO2 26.7 mmol/L (21.0-32.0); CREATININE 0.8 mg/dL (0.6-1.0); EST CRCL DRUG DOSING (CG) 99.25 mL/min; POTASSIUM,K 3.9 mmol/L (3.5-5.1); PROTEIN TOTAL,TP 7.3 g/dL (6.4-8.2)
== END 2023-02-25 17:07 | disposition home or self-care (01) ==
LOC: MW.ED 14:35
DX: O26.851 Spotting complicating pregnancy, first trimester (principal); Z3A.01 Less than 8 weeks gestation of pregnancy; Z88.0 Allergy status to penicillin; Z86.16 Personal history of COVID-19
CPT/HCPCS: 36415; 76817; 80053; 81003; 84702; 85025; 85610; 86850; 86900; 86901; 96361; 96374; 99284; J2405; J7030